=== PATIENT | male | born 1980 | race American Indian/Alaskan Native ===

== ENCOUNTER 2017-01-20 02:14 | Emergency (ER) | payer SELFPAY ==
[2017-01-20 03:10] LABS: Urine Drugs of Abuse Note Disclamer
[2017-01-20 03:48] LABS: Basophils % (Auto) 0.8 % (0.0-1.8); Eosinophils % (Auto) 1.2 % (0.0-4.3); Hematocrit 44.7 % (35.5-45.6); Hemoglobin 15.2 gm/dl (11.8-15.2); Mean Corpuscular HGB Conc 34 % (32-34); Mean Corpuscular Hemoglobin 31 pg (28-32); Mean Corpuscular Volume 91 fl (84-94); Platelet Count 200 K/mm3 (140-440); Red Cell Distribution Width 13.6 % (13.2-15.2); White Blood Count 8.8 K/mm3 (4.5-11.0)
[2017-01-20 03:56] LABS: Bilirubin,Urine NEG (Negative); Blood,Urine NEG (Negative); Ketones,Urine NEG (Negative); Leukocyte Esterase,Urine NEG (Negative); Mucus,Urine 1+ /HPF; Nitrite,Urine NEG (Negative); Urobilinogen,Urine < 2.0 mg/dL (<2.0)
[2017-01-20 04:05] LABS: Magnesium 2.5 mg/dL (1.7-2.3)
[2017-01-20 04:18] LABS: Anion Gap 20 mmol/L; Blood Urea Nitrogen 9 mg/dL (9-20); Calcium 9.1 mg/dL (8.4-10.2); Carbon Dioxide 21 mmol/L (22-30); Chloride 100.7 mmol/L (98-107); Glucose 98 mg/dL (75-100); Potassium 4.2 mmol/L (3.6-5.0); Sodium 137 mmol/L (137-145)
[2017-01-20 04:23] LABS: Lithium 0.1 mmol/L (0.0-1.2)
[2017-01-20 04:28] LABS: Salicylate < 0.3 mg/dL (2.8-20.0)
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
[2017-01-20] MEDS ORDERED: GEODON IM ONE (15:18)
[2017-01-20] MEDS: GEODON PO ONE (15:18)
[2017-01-20] MEDS: GEODON IM ONE (15:34)
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
[2017-01-21] MEDS ORDERED: WATER FOR INJ (PF) 10 ML ONE (10:31)
[2017-01-21] MEDS: GEODON IM ONE (10:46)
--- NOTE | 2017-01-21 11:08 | Progress Note ---
Subjective - Reason for Consult Consult date: 01/21/17 Reason for consult: psychiatric follow up - Chief Complaint Chief complaint: "They're keeping me in here" 36-year-old black male seen in the emergency department for psychiatric follow- up. He was observed dancing and responding to internal stimuli. He states that nobody else hears music like he does. He is required as needed medication for agitation. Staff report he has not been aggressive. He denies suicidal or homicidal ideation. Does express paranoia towards staff. Mental Status Exam - Vital signs Last Vital Signs Temp 98.8 F 01/20/17 20:00 Pulse 74 01/20/17 20:00 Resp 18 01/20/17 20:00 BP 126/77 01/20/17 20:00 Pulse Ox 100 01/20/17 20:00 - Exam Orientation: place, person Affect: agitated Mood: congruent with affect Thought content: grandiose, paranoia Thought Process: Circumstantial, Tangential Perceptions: other (he denies AH but is responding to internal stimuli) Speech: other (loud) Concentration: unable to pay attention Motor activity: agitated Level of consciousness: alert Sleep Symptoms: Difficulty Falling Asleep Interaction: other (he attempted to be cooperative) Assessment and Plan Psychiatric: Bipolar disorder with psychotic features Cannabis abuse MDMA abuse INITIAL PLAN OF CARE AND TREATMENT GOALS: 1. Continue patient on 1013 and transferred to inpatient psychiatric facility when patient is medically cleared 3. Obtain collateral information about past medication trials. 4. Start patient on Depakote ER 1000mg hs loading dose and schedule depakote er 500 mg q12h
[2017-01-21 12:27] VITALS: BP 126/74
== END 2017-01-21 14:34 ==
LOC: ED 02:14 → EEVIPCON 02:14 → ED 01-21 14:34
DX: F20.5 Residual schizophrenia (principal); F23 Brief psychotic disorder; F29 Unspecified psychosis not due to a substance or known physiological condition; F32.9 Major depressive disorder, single episode, unspecified
CPT/HCPCS: 36415; 80048; 80178; 80307; 81001; 82550; 83735; 85025; 93005; 93010; 96372; 99285; G0480; J3486; 80320

== ENCOUNTER 2019-12-25 08:59 | Emergency (ER) | payer SELFPAY ==
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
[2019-12-25 10:04] LABS: Basophils # (Auto) 0.1 K/mm3 (0.0-0.1); Basophils % (Auto) 1.3 % (0.0-1.8); Eosinophils % (Auto) 0.3 % (0.0-4.3); Hematocrit 43.6 % (35.5-45.6); Lymphocytes # (Auto) 1.6 K/mm3 (1.2-5.4); Lymphocytes % (Auto) 16.9 % (13.4-35.0); Mean Corpuscular HGB Conc 34 % (32-34); Mean Corpuscular Volume 89 fl (84-94); Monocytes # (Auto) 0.8 K/mm3 (0.0-0.8); Monocytes % (Auto) 7.9 % (0.0-7.3); Platelet Count 237 K/mm3 (140-440); Red Blood Count 4.93 M/mm3 (3.65-5.03); Red Cell Distribution Width 14.7 % (13.2-15.2)
[2019-12-25 10:19] LABS: Albumin 4.7 g/dL (3.9-5); BUN/Creatinine Ratio 12; Blood Urea Nitrogen 13 mg/dL (9-20); Hemolysis Index 108
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
[2019-12-25 10:23] LABS: Creatine Kinase MB 2.2 ng/mL (0.0-4.0)
[2019-12-25 10:41] LABS: Alanine Aminotransferase 32 units/L (7-56)
[2019-12-25 11:08] LABS: Bacteria,Urine 1+ /HPF (Negative); Bilirubin,Urine NEG (Negative); Blood,Urine NEG (Negative); Color,Urine Yellow (Yellow); Hyaline Casts,Urine 7 /LPF; Mucus,Urine FEW /HPF; Urobilinogen,Urine < 2.0 mg/dL (<2.0)
[2019-12-25 11:13] LABS: Amphetamine Screen,Urine PRESUMPTIVE NEGATIVE; Cocaine Screen,Urine PRESUMPTIVE NEGATIVE; Methadone Screen,Urine PRESUMPTIVE NEGATIVE; Opiate Screen,Urine PRESUMPTIVE NEGATIVE
[2019-12-25 11:57] LABS: Benzodiazepines Screen,Urine PRESUMPTIVE POSITIVE; Cannabinoid Screen,Urine PRESUMPTIVE POSITIVE
[2019-12-25] MEDS ORDERED: SODIUM CHLORIDE 0.9% 1000 ML 1,000 ML ONE (15:16)
[2019-12-25] MEDS ORDERED: SODIUM CHLORIDE 0.9% 1000 ML 1,000 ML IV ONE (15:31)
--- NOTE | 2019-12-26 11:30 | Event Note ---
Date: 12/26/19 Patient appears to be asleep and unable to or not willing to engage in psych eval this morning.
[2019-12-26 14:09] VITALS: BP 132/85
[2019-12-27] MEDS ORDERED: ZIPRASIDONE MESYLATE 20 MG VIAL IM ONE (09:08)
== END 2019-12-27 12:01 ==
LOC: ED 08:59 → EEVIPCON 08:59 → ED 12-27 12:01
DX: F31.9 Bipolar disorder, unspecified (principal); Z79.899 Other long term (current) drug therapy; R41.82 Altered mental status, unspecified
CPT/HCPCS: 36415; 71045; 80053; 80178; 80307; 81001; 82550; 82553; 84484; 85025; 93005; 93010; 96360; 96372; 99285; J3486; J7030; 80320; G0480